=== PATIENT | female | born 1975 | race Caucasian/White ===

== ENCOUNTER → 2023-01-09 | Outpatient (CLI) | payer OTHER ==
--- NOTE | 2023-01-10 19:33 | MM ---
Reason for Exam: Screening (asymptomatic). Last mammogram was performed 1 year(s) and 1 month(s) ago. Patient History: Menarche at age 13. First Full-Term at age 29. Last menstrual period: 01/05/2023 Risk Values: Sheila 5 year model risk: 1.0%. NCI Lifetime model risk: 10.3%. Prior Study Comparison: 12/14/2020 Bilateral MG 3D screening mammo w/cad, [facility], [place]. 12/30/2021 Bilateral MG 3D screening mammo w/cad, [facility]. Tissue Density: The breast tissue is heterogeneously dense. This may lower the sensitivity of mammography. Findings: Analyzed By CAD. Regional punctate microcalcifications on both sides at anterior depth remain unchanged. Additional areas of asymmetric density are unchanged. There is no suspicious group of microcalcifications or new suspicious mass in either breast. Overall Assessment: Benign, BI-RAD 2 Management: Screening Mammogram of both breasts in 1 year. . Patient should continue monthly self-breast exams. A clinical breast exam by your physician is recommended on an annual basis. This exam should not preclude additional follow-up of suspicious palpable abnormalities. Note on Sheila scores and lifetime risk: 1. A Sheila score greater than 3% is considered moderate risk. If this is the case, consider specialist referral to assess eligibility for a risk reducing agent. 2. If overall lifetime risk for the development of breast cancer is 20% or higher, the patient may qualify for future screening with alternating mammogram and breast MRI. Electronically signed and approved by: Burton Sheppard M.D. Radiologist
== END | disposition home or self-care (01) ==
LOC: RADMAMWWP 16:11
PROVIDERS: ATTEND Obstetrics & Gynecology
DX: Z12.31 Encounter for screening mammogram for malignant neoplasm of breast (principal)
CPT/HCPCS: 77063; 77067

== ENCOUNTER → 2024-02-28 | Outpatient (CLI) | payer OTHER ==
--- NOTE | 2024-03-01 13:58 | MM ---
Reason for Exam: Screening (asymptomatic). Last mammogram was performed 1 year(s) and 1 month(s) ago. Patient History: Menarche at age 13. First Full-Term at age 29. Currently using Hormonal Contraceptives, starting at age 49. Risk Values: Sheila 5 year model risk: 1.0%. NCI Lifetime model risk: 10.0%. Prior Study Comparison: 12/14/2020 Bilateral MG 3D screening mammo w/cad, [facility], [place]. 12/30/2021 Bilateral MG 3D screening mammo w/cad, [facility], [place]. 01/09/2023 Bilateral MG 3D screening mammo w/cad, [facility]. Tissue Density: The breasts are heterogeneously dense, which may obscure small masses. Findings: Analyzed By CAD. Right breast: There is no suspicious group of microcalcifications or new suspicious mass. Benign-appearing calcifications right breast. Left breast: There is no suspicious group of microcalcifications or new suspicious mass. Benign-appearing calcifications left breast. Overall Assessment: Benign, BI-RAD 2 Management: Screening Mammogram of both breasts in [address] [facility] will attempt to contact patient to return for supplemental views and ultrasound if indicated. Patient should continue monthly self-breast exams. A clinical breast exam by your physician is recommended on an annual basis. This exam should not preclude additional follow-up of suspicious palpable abnormalities. Note on Sheila scores and lifetime risk: 1. A Sheila score greater than 3% is considered moderate risk. If this is the case, consider specialist referral to assess eligibility for a risk reducing agent. 2. If overall lifetime risk for the development of breast cancer is 20% or higher, the patient may qualify for future screening with alternating mammogram and breast MRI. Electronically signed and approved by: Roddy Will DO
== END | disposition home or self-care (01) ==
LOC: RADMAMWWP 14:42
PROVIDERS: ATTEND Obstetrics & Gynecology
DX: Z12.31 Encounter for screening mammogram for malignant neoplasm of breast (principal)
CPT/HCPCS: 77063; 77067

== ENCOUNTER → 2024-06-21 | Outpatient (CLI) | payer OTHER ==
--- NOTE | 2024-06-28 10:12 | CT ---
EXAMINATION TYPE: CT sinus wo con DATE OF EXAM: 06/21/2024 COMPARISON: HISTORY: Chronic maxillary sinusitis. CT DLP: 422.[address] of the paranasal sinuses was performed in the axial and coronal planes. Bone and soft tissue settings are submitted. The paranasal sinuses demonstrate normal aeration and development. The paranasal sinuses are free of mucosal thickening or air fluid level. The osteal meatal units are patent bilaterally. The nasal septum is midline. No bony destructive changes are seen within the field of view. IMPRESSION: Normal unenhanced CT of the paranasal sinuses. [facility], , 06/28/2024 10:09 AM
== END | disposition home or self-care (01) ==
LOC: RADCTMAIN 16:38
PROVIDERS: ATTEND Otolaryngology
DX: J32.0 Chronic maxillary sinusitis (principal)
CPT/HCPCS: 70486

== ENCOUNTER → 2024-07-04 | Outpatient (CLI) | payer OTHER ==
[2024-07-05 06:00] LABS: Alternaria alternata IgE <0.10 kU/L; Aspergillus fumagatus IgE <0.10 kU/L; Birch IgE <0.10 kU/L; Cat Epith & Dander IgE <0.10 kU/L; Cladosporian herbarum IgE <0.10 kU/L; Cockroach IgE <0.10 kU/L; Dermato. farinae IgE <0.10 kU/L; Dog Dander IgE <0.10 kU/L; Elm IgE <0.10 kU/L; Maple (Box Elder) IgE <0.10 kU/L; Oak IgE <0.10 kU/L; Ragweed,Common IgE <0.10 kU/L; Red Top (Bentgrass) IgE <0.10 kU/L
== END | disposition home or self-care (01) ==
LOC: LABWHC1 15:47
PROVIDERS: ATTEND Otolaryngology
DX: J30.89 Other allergic rhinitis (principal)
CPT/HCPCS: 36415; 82785; 86003

== ENCOUNTER → 2025-01-07 | Outpatient (CLI) | payer OTHER ==
[2025-01-07 16:26] VITALS: BP 127/84; PULSE 76; RESP 16; TEMP 98.4
--- NOTE | 2025-01-07 17:09 | P.SLEEP ---
History of Present Illness H&P Date: 01/07/25 This is a 49-year-old female patient was coming in for sleep apnea. The patient was diagnosed having sleep apnea back in 2022. At that time, the patient underwent a sleep study through [facility] and she was diagnosed having mild obstructive sleep apnea. She utilized the CPAP machine for quite some time. Subsequently, as the patient lost weight, approximately 40 pounds, she ended up quitting the treatment. After stopping CPAP therapy, the patient has been gradually gaining weight. Her sleep is currently disturbed and disrupted and the patient also has a component of insomnia. She is having difficulty initiating sleep. She has chronic anxiety and depression. She takes a combin ation of Effexor and Abilify. At times, she also takes Klonopin. She goes to bed at around 9 PM. She watches TV till 10 PM. She tries to fall asleep at 10 PM and sometimes takes up to 2 hours to fall asleep and ultimately she gets out of bed at around 7 AM. She wakes up constantly in the middle of the night. Sometimes, she wakes up at 530 and she is unable to generate sleep again. The patient thinks that she is averaging around 3 to 4 hours of sleep. She lives alone. She snores. Her current Peoa score is at 3. No sleep paralysis. No hallucinations. No cataplexy. No naps during the day. The patient sleeps on her side. She has no substance abuse. No alcoholism. She has no nighttime dyspnea or heartburn. No arthritic pain. No back pain. She is quite anxious and sometimes she cannot turn off her brain and this builds up a lot of anxiety at night which prevents her from initiating sleep. She sleeps better whenever she takes Klonopin. Review of Systems Constitutional: Reports daytime sleepiness, Reports fatigue, Reports weight gain Eyes: denies as per HPI, denies blurred vision, denies bulging eye, denies decreased vision, denies diplopia, denies discharge, denies dry eye, denies irritation, denies itching, denies pain, denies photophobia, denies loss of peripheral vision, denies loss of vision, denies tunnel vision/blind spots Ears: deny: decreased hearing, ear discharge, earache, tinnitus Ears, nose, mouth and throat: Reports as per HPI Breasts: absent: as per HPI, change in shape, gynecomastia, masses, nipple discharge, pain, skin changes, swelling Breasts: Reports as per HPI Cardiovascular: Reports as per HPI Respiratory: Reports sleep apnea Gastrointestinal: Reports as per HPI Genitourinary: Reports as per HPI Menstruation: Reports as per HPI Musculoskeletal: Reports as per HPI Musculoskeletal: absent: ankle pain, ankle stiffness, ankle swelling, as per HPI, elbow pain, elbow stiffness, elbow swelling, foot pain, foot stiffness, foot swelling, hand pain, hand stiffness, hand swelling, hip pain, hip st iffness, hip swelling, knee pain, knee stiffness, knee swelling, shoulder pain, shoulder stiffness, shoulder swelling, wrist pain, wrist stiffness, wrist swelling Integumentary: Reports as per HPI Neurological: Reports as per HPI Psychiatric: Reports anxiety, Reports change in sleep habits, Reports depression, Reports hypersomnia, Reports sleep disturbances Endocrine: Reports as per HPI, Reports fatigue Hematologic/Lymphatic: Reports as per HPI Allergic/Immunologic: Reports as per HPI Past Medical History Past Medical History: GERD/Reflux, Hypertension, Sleep Apnea/CPAP/BIPAP Additional Past Medical History / Comment(s): high triglcerides History of Any Multi-Drug Resistant Organisms: None Reported Past Surgical History: Ablation, Bladder Surgery, Cholecystectomy, Orthopedic Surgery Additional Past Surgical History / Comment(s): Endomerial Ablation Past Anesthesia/Blood Transfusion Reactions: No Reported Reaction Past Psychological History: Anxiety, Depression Smoking Status: Former smoker Past Alcohol Use History: Occasional Past Drug Use History: None Reported - Past Family History Mother Family Medical History: Hypertension Father Family Medical History: Coronary Artery Disease (CAD), Hyperlipidemia Medications and Allergies Home Medications Medication Instructions Recorded Confirmed Type ARIPiprazole [Abilify] 5 mg PO DAILY 01/07/25 01/07/25 History Cholecalciferol (Vitd3)/Vit K2 See Rx Instructions .ROUTE .COMPLEX 01/07/25 01/07/25 History [Vit D3-Vit K2 125-100 Mcg Sfgl] Fenofibrate [Lofibra] 160 mg PO DAILY 01/07/25 01/07/25 History Omeprazole 20 mg PO DAILY 01/07/25 01/07/25 History Venlafaxine HCl ER [Effexor XR] 150 mg PO DAILY 01/07/25 01/07/25 History atenoloL 25 mg PO DAILY 01/07/25 01/07/25 History Physical Exam Vitals: Vital Signs Temp Pulse Resp BP Pulse Ox 01/07/25 16:24 98.4 F 76 16 127/84 100 Intake and Output 01/07/25 01/07/25 01/07/25 06:59 14:59 22:59 Other: Weight 101.151 kg The patient appeared well nourished and normally developed. Vital signs as documented. The body mass index is 35.9. Head exam is unremarkable. No scleral icterus or corneal arcus noted. Neck is without jugular venous distension, thyromegaly, or carotid bruits. Carotid upstrokes are brisk bilaterally. The patient has a Mallampati class IV. Lungs are clear to auscultation and percussion. Cardiac exam reveals the PMI to be normally sized and situated. Rhythm is regular. First and second heart sounds normal. No murmurs, rubs or gallops. Abdominal exam reveals normal bowel sounds, no masses, no organomegaly and no aortic enlargement. Extremities are nonedematous and both femoral and pedal pulses are normal. Examination of the skin revealed no evidence of significant rashes, suspicious appearing nevi or other concerning lesions. Neurologically, the patient is awake and alert and the patient does not have any focal neurological deficit. Cranial nerves are essentially intact. Assessment and Plan Plan: Chronic hypersomnia. A complex situation of mixed chronic comorbid insomnia and mild obstructive sleep apnea. The patient was diagnosed having LUIS EDUARDO back in 2022 and the patient was treated for a brief period of time and the patient was able to lose weight and subsequently she quit the treatment. Since then, she has gained weight again her current body mass index is 35.9. Her sleep remains fragmented. I did same time, the patient is having difficulties in sleep initiation and maintenance related to comorbid insomnia. She has increased level of anxiety. She is taking a combination of Abilify and Effexor and Klonopin on a as needed basis. Chronic anxiety Chronic depression Hypertriglyceridemia Acid reflux Obesity with a BMI of 35.9 Hypertension Plan I had a lengthy discussion with the patient regarding treatment options. Obviously, we need to treat her chronic insomnia and sleep apnea separately. The patient was given principles of sleep restriction and stimulus control. She is going to implement cognitive behavioral therapy. She is going to continue with the combination of Abilify and Effexor and utilize Klonopin as needed. During this time, she is going to implement good sleep hygiene measures. She is going to maintain a sleep diary and we will going to monitor symptoms of insomnia. She will be given an appointment for a sonography to be done in 3 to 4 weeks and based on that we will make a decision if CPAP therapy will be of any benefit for this patient in the future. The patient was agreeable with our plan. Maintain a sleep diary. She will see me after completing her polysomnography. Sleep Note - Sleep Data ESS Total: 3 - Sleep Note Sleep Note: Temperature: 98.4 F Pulse Rate: 76 Respiratory Rate: 16 Blood Pressure: 127/84 SpO2: 100 Height: 5 ft 6 in Weight: 101.151 kg BMI: Neck Circumference: 16
== END ==
LOC: 3 N SLEEP 14:51
PROVIDERS: ATTEND Internal Medicine Critical Care Medicine
DX: G47.33 Obstructive sleep apnea (adult) (pediatric) (principal); F41.9 Anxiety disorder, unspecified; F32.A Depression, unspecified; E78.1 Pure hyperglyceridemia; K21.9 Gastro-esophageal reflux disease without esophagitis; E66.9 Obesity, unspecified; I10 Essential (primary) hypertension; Z68.35 Body mass index [BMI] 35.0-35.9, adult; Z79.899 Other long term (current) drug therapy
CPT/HCPCS: 99211

== ENCOUNTER → 2025-03-04 | Outpatient (CLI) | payer OTHER ==
--- NOTE | 2025-03-05 07:37 | MM ---
Reason for Exam: Screening (asymptomatic). Last screening mammogram was performed 12 month(s) ago. Patient History: Menarche at age 13. First Full-Term at age 29. Perimenopausal. Currently using Hormonal Contraceptives, starting at age 49. Risk Values: Sheila 5 year model risk: 1.1%. NCI Lifetime model risk: 9.9%. Prior Study Comparison: 12/30/2021 Bilateral MG 3D screening mammo w/cad, [facility]. 01/09/2023 Bilateral MG 3D screening mammo w/cad, [facility]. 02/28/2024 Bilateral MG 3D screening mammo w/cad, [facility]. Tissue Density: The breasts are heterogeneously dense, which may obscure small masses. Findings: Analyzed By CAD. Right breast: There is no suspicious group of microcalcifications or new suspicious mass. Benign-appearing calcifications right breast. Left breast: There is no suspicious group of microcalcifications or new suspicious mass. Benign-appearing calcifications left breast. Overall Assessment: Benign, BI-RAD 2 Management: Screening Mammogram of both breasts in [address] [facility] will attempt to contact patient to return for supplemental views and ultrasound if indicated. Patient should continue monthly self-breast exams. A clinical breast exam by your physician is recommended on an annual basis. This exam should not preclude additional follow-up of suspicious palpable abnormalities. Note on Sheila scores and lifetime risk: 1. A Sheila score greater than 3% is considered moderate risk. If this is the case, consider specialist referral to assess eligibility for a risk reducing agent. 2. If overall lifetime risk for the development of breast cancer is 20% or higher, the patient may qualify for future screening with alternating mammogram and breast MRI. [facility], , 03/05/2025 7:35 AM. Electronically signed and approved by: Roddy Will DO
== END | disposition home or self-care (01) ==
LOC: RADMAMWWP 16:19
PROVIDERS: ATTEND Obstetrics & Gynecology
DX: Z12.31 Encounter for screening mammogram for malignant neoplasm of breast (principal); R92.333 Mammographic heterogeneous density, bilateral breasts; R92.1 Mammographic calcification found on diagnostic imaging of breast; Z92.0 Personal history of contraception
CPT/HCPCS: 77063; 77067